=== PATIENT | female | born 1935 | race American Indian/Alaskan Native ===

== ENCOUNTER 2016-12-21 18:46 | Emergency (ER) | payer MEDICARE ==
[2016-12-22 02:34] VITALS: BP 132/47
[2016-12-22] MEDS ORDERED: FUL-GLO OP ONE (03:27)
[2016-12-22] MEDS ORDERED: TETRACAINE 0.5% OU ONE (03:27)
--- NOTE | 2016-12-22 04:13 | Emergency Department Report ---
HPI - General Chief Complaint: Eye Problems Time Seen by Provider: 12/22/16 03:01 - HPI HPI: This is a 81-year-old female presents to the emergency department with complaint of some pain to the left eye and to the left side of the face. The patient has been dealing with shingles since mid November. She has a environmental scientist, Dr. Brady Layton, who she says she has seen multiple times since this began and has been treating her. She saw him last week and was prescribed ganciclovir ophthalmic, a refill, but she was unable to get it filled as it appears to need a prior authorization. She denies any new or current vision change but says that every once in a while she will see a few spots. She denies any fever, headache or any neurological deficits. ED Past Medical Hx - Past Medical History Hx Hypertension: Yes Hx Diabetes: Yes Hx Arthritis: Yes - Social History Smoking Status: Never Smoker Substance Use Type: None - Medications Home Medications: Home Medications Medication Instructions Recorded Confirmed Last Taken Type Aspirin EC [Aspirin Enteric Coated 325 mg PO DAILY 10/24/15 10/24/15 10/24/15 History TAB] 325mg Bisoprolol [Zebeta] 5 mg PO BID 10/24/15 10/24/15 10/23/15 History 5mg Enalapril Maleate 20 mg PO DAILY 10/24/15 10/24/15 10/24/15 History 20mg Hydrochlorothiazide 25 mg PO DAILY 10/24/15 10/24/15 10/23/15 History 25mg Lovastatin Tab [Mevacor Tab] 40 mg PO DAILY 10/24/15 10/24/15 10/23/15 History 40mg Meclizine [Antivert] 25 mg PO DAILY 10/24/15 10/24/15 10/23/15 History 25mg HYDROcodone/APAP 5-325 [[place] 1 each PO Q6HR PRN #10 tablet 12/22/16 Unknown Rx 5/325] ED Review of Systems ROS: Stated complaint: LEFT EYE PAIN/SHINGLES Other details as noted in HPI Comment: All other systems reviewed and negative Constitutional: denies: chills, fever Eyes: eye pain. denies: eye discharge ENT: denies: ear pain, throat pain Respiratory: denies: cough, shortness of breath, wheezing Cardiovascular: denies: chest pain, palpitations Gastrointestinal: denies: abdominal pain, nausea, diarrhea Genitourinary: denies: urgency, dysuria, discharge Musculoskeletal: denies: back pain, joint swelling, arthralgia Skin: rash, lesions Neurological: denies: headache, weakness, paresthesias Physical Exam - Physical Exam Vital Signs: Vital Signs 12/21/16 12/22/16 18:57 02:28 Temperature 97.9 F Pulse Rate 73 50 L Respiratory 16 16 Rate Blood Pressure 135/66 Blood Pressure 132/47 [Left] O2 Sat by Pulse 97 100 Oximetry Physical Exam: GENERAL: The patient is well-developed well-nourished. HENT: Normocephalic. Atraumatic. Patient has moist mucous membranes. EYES: Extraocular motions are intact. Pupils equal reactive to light bilaterally. No nystagmus. Mild conjunctival injection on the left. Visual acuity: 20/50 on OD and OS, 20/40 both eyes. There is a moderate amount of fluorescein uptake to the lower midline portion of the left cornea. NECK: Supple. Trachea is midline. CHEST/LUNGS: Clear to auscultation. There is no respiratory distress noted. HEART/CARDIOVASCULAR: Regular. There is no tachycardia. There is no gallop rub or murmur. ABDOMEN: Abdomen is soft, nontender. Patient has normal bowel sounds. There is no abdominal distention. SKIN: Skin is warm and dry. NEURO: The patient is awake, alert, and oriented. The patient is cooperative. The patient has no focal neurologic deficits. The patient has normal speech. MUSCULOSKELETAL: There is no tenderness or deformity. There is no limitation range of motion. There is no evidence of acute injury. ED Course Vital Signs 12/21/16 12/22/16 18:57 02:28 Temperature 97.9 F Pulse Rate 73 50 L Respiratory 16 16 Rate Blood Pressure 135/66 Blood Pressure 132/47 [Left] O2 Sat by Pulse 97 100 Oximetry ED Medical Decision Making - Medical Decision Making 81-year-old female with a history of shingles rash and herpes zoster ophthalmicus presents with some left eye pain and some pain lateral to the left eye over the forehead and/or cheek and concerned as she has been unable to refill her ganciclovir ophthalmicus without a prior authorization from the environmental scientist. Her visual acuity is consistent between both eyes. With fluorescein staining and Wood lamp observation, there was a mild to moderate amount of fluorescein uptake to the inferior midline left cornea. I could not quite make out any obvious hyphae vs psuedohyphae but the patient has a known history of this herpes zoster ophthalmicus. I checked with pharmacy to see if we had any antiviral ophthalmology drops but unfortunately we do not. As the patient on he has good follow-up with ophthalmology and this is an issue that she has been dealing with for weeks, it did not appear to be an emergent situation for transfer. Patient will be discharged home with a small amount of pain medication for what appears to be some postherpetic neuralgia the left side of the face. She will call her environmental scientist's office to seek a prior authorization or instructions on other options or how to proceed. She already has an appointment this coming Wednesday but has been encouraged to move it up if possible. She will return to the ER with any worsening symptoms or any acute distress. - Differential Diagnosis conjunctivitis, corneal abrasion, herpes zoster ophthalmicus, corneal ulcer Critical Care Time: No Critical care attestation.: If time is entered above; I have spent that time in minutes in the direct care of this critically ill patient, excluding procedure time. ED Disposition Clinical Impression: Herpes zoster ophthalmicus of left eye, Postherpetic neuralgia Shingles rash Qualifiers: Herpes zoster complications: with ocular involvement Herpes zoster ocular complication detail: unspecified herpes zoster eye disease Qualified Code(s): B02.30 - Zoster ocular disease, unspecified Disposition: DC-01 TO HOME OR SELFCARE Is pt being admited?: No Condition: Stable Instructions: Herpes Zoster (ED) Additional Instructions: Please call the environmental scientist later on this morning for either a prior authorization of your ganciclovir ophthalmic medication or for further instructions and/or other options. Return to the emergency Department with any worsening of your symptoms or any acute distress. You have been prescribed a medication that is sedating and therefore should not be taken prior to driving, working, and responsible for children and in no way should be mixed with alcohol of any quantity. You need to be careful when taking this medication as it may make you more prone to falls. Only take it if you were dealing with increased or moderate to severe pain. Prescriptions: HYDROcodone/APAP 5-325 [[place] 5/325] 1 each PO Q6HR PRN #10 tablet PRN Reason: Pain Referrals: BRADY LAYTON MD [Staff Physician] - ROSA M ANGELINA DE LOS SANTOS MD [Primary Care Provider] - ROSA M Time of Disposition: 04:13
== END 2016-12-22 04:41 | disposition home or self-care (01) ==
LOC: ED 18:46
DX: B02.30 Zoster ocular disease, unspecified (principal); B02.29 Other postherpetic nervous system involvement; I10 Essential (primary) hypertension; E11.9 Type 2 diabetes mellitus without complications; M19.90 Unspecified osteoarthritis, unspecified site; Z79.82 Long term (current) use of aspirin
CPT/HCPCS: 99283